=== PATIENT | female | born 1970 | race Caucasian/White ===

== ENCOUNTER 2017-06-05 13:05 | Emergency (ER) | payer BC ==
[2017-06-05 14:09] VITALS: BP 135/87
--- NOTE | 2017-06-05 14:11 | UC ---
Throat Pain/Nasal Ty HPI - HPI Summary HPI Summary: 46 y/o female presents to the urgent care c/o KRISHNA, nasal congestion, dry cough and pain for the past 2 weeks. Pt reports symptoms started with nasal congestion. She now has sinus pain, Rt ear pain and green nasal discharge. She has been taking Afrin nasal drops and OTC meds but symptoms are not improving. Pt denies fever, SOB, chest pain, N/V/D, abdominal pain. - History of Current Complaint Chief Complaint: UCRespiratory Stated Complaint: SINUS COMPLAINT Time Seen by Provider: 06/05/17 14:06 Hx Obtained From: Patient Hx Last Menstrual Period: unknown, ablation ?: No Onset/Duration: Gradual Onset, Lasting Weeks - 2 weeks, Still Present Severity: Moderate Pain Intensity: 6 Pain Scale Used: 0-10 Numeric Cough: Nonproductive Associated Signs & Symptoms: Positive: Sinus Discomfort, Nasal Discharge. Negative: Fever - Epiglottits Risk Factors Epiglottis Risk Factors: Negative - Allergies/Home Medications Allergies/Adverse Reactions: Allergies Allergy/AdvReac Type Severity Reaction Status Date / Time Hydrocodone Allergy Mild Itching Verified 06/05/17 14:09 BEE Allergy Severe ANAPHLYLACTIC Uncoded 06/05/17 14:09 SHOCK ENVIRONMENTAL Allergy Mild SINUS Uncoded 06/05/17 14:09 Home Medications: Home Medications Levothyroxine TAB* [Synthroid 25 MCG TAB*] 25 mcg PO DAILY 06/05/17 [History Confirmed 06/05/17] PMH/Surg Hx/FS Hx/Imm Hx Previously Healthy: Yes Cardiovascular History: Hypertension Other Neurological History: Carpal tunnel syndrome - Surgical History Surgical History: Yes Surgery Procedure, Year, and Place: [facility]us [facility], 2012, [facility], ablation. cholecystectomy. left carpal tunnel 2016 - Family History Known Family History: Positive: Hypertension, Diabetes - Social History Occupation: Employed Full-time Lives: With Family Alcohol Use: Rare Substance Use Type: None Smoking Status (MU): Former Smoker Type: Cigarettes Amount Used/How Often: 3/4 TO 1 PPD Length of Time of Smoking/Using Tobacco: 4 YRS Have You Smoked in the Last Year: No Household Exposure Type: Cigarettes - Immunization History Most Recent Influenza Vaccination: yes Review of Systems Constitutional: Negative Skin: Negative Eyes: Negative ENT: Ear Ache - RT, Nasal Discharge, Sinus Congestion - with green sputum Respiratory: Cough - dry Cardiovascular: Negative Gastrointestinal: Negative Genitourinary: Negative Motor: Negative Neurovascular: Negative Musculoskeletal: Negative Psychological: Negative Is Patient Immunocompromised?: No All Other Systems Reviewed And Are Negative: Yes Physical Exam Triage Information Reviewed: Yes Vital Signs: Initial Vital Signs Temp 98.5 F 06/05/17 14:04 Pulse 64 06/05/17 14:04 Resp 16 06/05/17 14:04 BP 135/87 06/05/17 14:04 Pulse Ox 98 06/05/17 14:04 - Additional Comments Viral signs: reviewed General: Well developed, well-nourished patient with NAD. Head and face: Normocephalic and atraumatic, Positive tenderness over the frontal and maxillary sinuses.. Eyes: PERRLA, EOMI x 2. Normal conjunctiva. No eye discharge. ENT: Ears and TM with normal limits. Nose: with yellowish discharge and erythematous mucosa. Pharynx with erythema, no exudate. Neck: Supple, no JVD, no carotid bruits and no lymphadenopathy. Lungs: clear, no rales, no rhonchi, no wheezes. CVS: RRR, S1 and S2 present no murmurs or gallops appreciated. Abdomen: soft nontender with positive bowel sounds. Extremities: no edema noted. Neuro: WNL. Skin: warm and dry Throat Pain/Nasal Course/Dx - Course Course Of Treatment: 46 y/o female presents to the urgent care c/o KRISHNA, nasal congestion, dry cough and pain for the past 2 weeks. Pt reports symptoms started with nasal congestion. She now has sinus pain, Rt ear pain and green nasal discharge. She has been taking Afrin nasal drops and OTC meds but symptoms are not improving. Pt denies fever, SOB, chest pain, N/V/D, abdominal pain.Hx obtained. Pt with sinusitis on examination. Pt with 2 weeks of symptoms getting worse. Pt Rx Augmentin PO and flonase nasal spray. Discharge instructions explained to Pt. Advised to Return to the clinic or PCP if symptoms do not improve.Pt understood and agreed with plan of care. - Differential Dx/Diagnosis Differential Diagnosis/HQI/PQRI: Influenza, Laryngitis, Mononucleosis, Otitis Media, Pharyngitis, Sinusitis, Tonsillitis, URI Provider Diagnoses: 1- Acute sinusitis Discharge - Discharge Plan Condition: Stable Disposition: HOME Prescriptions: Amoxicillin/Clavulanate TAB* [Augmentin TAB 875*] 875 mg PO BID #20 tab Fluticasone NASAL SPRAY 50MCG* [Flonase NASAL SPRAY 50MCG*] 2 spray BOTH NARES DAILY #1 btl Patient Education Materials: Sinusitis (ED) Referrals: Matteo Mendoza DO [Primary Care Provider] - If Needed Additional Instructions: 1- Please increase fluid intake and rest. take full course of antibiotic to avoid resistance 2-Use Flonase as directed to help drain fluid. Also buy saline drops to clear sinuses 3-Take Sudafed or Claritin PO OTC to alleviates sinus congestion 4-Return to the clinic or PCP if symptoms do not improve for further management and treatment
== END 2017-06-05 14:39 | disposition home or self-care (01) ==
LOC: UCCORT 13:05
DX: J01.90 Acute sinusitis, unspecified (principal); I10 Essential (primary) hypertension; Z88.5 Allergy status to narcotic agent; Z91.030 Bee allergy status; Z87.891 Personal history of nicotine dependence
CPT/HCPCS: 99212; G0463

== ENCOUNTER 2017-09-21 17:38 | Emergency (ER) | payer BC ==
[2017-09-21 18:48] VITALS: BP 129/83
[2017-09-21] MEDS ORDERED: Amoxicillin/Clavulanate TAB* 875 MG PO ONE (19:08)
--- NOTE | 2017-09-21 19:08 | UC ---
Throat Pain/Nasal Ty HPI - HPI Summary HPI Summary: pt states she has had a head cold for several days. the past 3 days she has developed thick yellow nasal discharge, R sinus pain and ear pain. she has tx with nedi pot, mucinex and the last of nasal spray with no relief. - History of Current Complaint Chief Complaint: UCGeneralIllness Stated Complaint: SINUSES Time Seen by Provider: 09/21/17 18:57 Hx Obtained From: Patient Hx Last Menstrual Period: unknown, ablation ?: No Onset/Duration: Gradual Onset Pain Intensity: 0 Associated Signs & Symptoms: Positive: Sinus Discomfort, Nasal Discharge - Epiglottits Risk Factors Epiglottis Risk Factors: Negative - Allergies/Home Medications Allergies/Adverse Reactions: Allergies Allergy/AdvReac Type Severity Reaction Status Date / Time hydrocodone Allergy Itching Verified 09/21/17 18:48 BEE Allergy Severe ANAPHLYLACTIC Uncoded 09/21/17 18:48 SHOCK ENVIRONMENTAL Allergy Mild SINUS Uncoded 09/21/17 18:48 Home Medications: Home Medications Lisinopril TAB* [Prinivil TAB 10 MG*] 20 mg PO DAILY 09/21/17 [History Confirmed 09/21/17] PMH/Surg Hx/FS Hx/Imm Hx - Additional Past Medical History Additional PMH: sinusitis Endocrine History: Thyroid Disease Cardiovascular History: Hypertension - Surgical History Surgical History: Yes Surgery Procedure, Year, and Place: [facility], [facility], [facility]. Sinus Surgery, 2012, [facility], ablation. cholecystectomy. left carpal tunnel 2017. right carpal tunnel 2018 - Family History Known Family History: Positive: Hypertension, Diabetes - Social History Occupation: Employed Full-time Lives: With Family Alcohol Use: None Substance Use Type: None Smoking Status (MU): Former Smoker Type: Cigarettes Amount Used/How Often: 3/4 TO 1 PPD Length of Time of Smoking/Using Tobacco: 4 YRS Have You Smoked in the Last Year: No Household Exposure Type: Cigarettes - Immunization History Most Recent Influenza Vaccination: yes Vaccination Up to Date: Yes Review of Systems Constitutional: Negative Skin: Negative Eyes: Negative ENT: Ear Ache, Nasal Discharge, Sinus Congestion, Sinus Pain/Tenderness Respiratory: Negative Cardiovascular: Negative Gastrointestinal: Negative Genitourinary: Negative Motor: Negative Neurovascular: Negative Musculoskeletal: Negative Neurological: Negative Psychological: Negative Is Patient Immunocompromised?: No All Other Systems Reviewed And Are Negative: Yes Physical Exam Triage Information Reviewed: Yes Appearance: Well-Appearing Vital Signs: Initial Vital Signs Temp 98.2 F 09/21/17 18:42 Pulse 71 09/21/17 18:42 Resp 20 09/21/17 18:42 BP 129/83 09/21/17 18:42 Pulse Ox 99 09/21/17 18:42 Vital Signs Reviewed: Yes Eyes: Positive: Conjunctiva Clear ENT: Positive: Pharynx normal, Nasal congestion, TMs normal, Sinus tenderness - R maxilla Neck: Positive: Supple, Nontender, No Lymphadenopathy Respiratory: Positive: Lungs clear, Normal breath sounds, No respiratory distress Cardiovascular: Positive: RRR, No Murmur Abdomen Description: Positive: Nontender, No Organomegaly, Soft Bowel Sounds: Positive: Present Musculoskeletal: Positive: ROM Intact Neurological: Positive: Alert Psychological: Positive: Age Appropriate Behavior Skin Exam: Normal Throat Pain/Nasal Course/Dx - Differential Dx/Diagnosis Provider Diagnoses: sinusitis Discharge - Discharge Plan Condition: Stable Disposition: HOME Prescriptions: Amoxicillin/Clavulanate TAB* [Augmentin TAB 875*] 875 mg PO BID 10 Days #20 tab Fluticasone NASAL SPRAY 50MCG* [Flonase NASAL SPRAY 50MCG*] 2 spray BOTH NARES DAILY 14 Days #1 btl Patient Education Materials: Sinusitis (ED) Referrals: Matteo Mendoza DO [Primary Care Provider] - 7 Days
== END 2017-09-21 19:17 | disposition home or self-care (01) ==
LOC: UCCORT 17:38
DX: J32.9 Chronic sinusitis, unspecified (principal); Z88.4 Allergy status to anesthetic agent; Z91.030 Bee allergy status; Z88.5 Allergy status to narcotic agent; Z91.048 Other nonmedicinal substance allergy status
CPT/HCPCS: 99212; A9270-GY; G0463

== ENCOUNTER 2018-03-29 17:55 | Emergency (ER) | payer BC ==
[2018-03-29 18:08] VITALS: BP 160/90
--- NOTE | 2018-03-29 18:48 | UC ---
Hand/Wrist HPI - HPI Summary HPI Summary: Pinched finger in the hinge of a table opening it up. opened blood blister but swelling is still spreading and some burning sensation in the tip of the finger. - History Of Current Complaint Chief Complaint: UCSkin Stated Complaint: RT HAND SKIN COMPLAINT Time Seen by Provider: 03/29/18 18:36 Hx Obtained From: Patient Hx Last Menstrual Period: unknown, ablation ?: No Onset/Duration: Sudden Onset, Lasting Hours - 4, Still Present Severity Initially: Moderate Severity Currently: Moderate Pain Intensity: 7 Character Of Pain: Sharp, Burning Aggravating Factor(s): Movement Alleviating Factor(s): Nothing Associated Signs And Symptoms: Positive: Bruising Related History: Dominant Hand Right - Allergies/Home Medications Allergies/Adverse Reactions: Allergies Allergy/AdvReac Type Severity Reaction Status Date / Time hydrocodone Allergy Itching Verified 03/29/18 18:09 BEE Allergy Severe ANAPHLYLACTIC Uncoded 03/29/18 18:09 SHOCK ENVIRONMENTAL Allergy Mild SINUS Uncoded 03/29/18 18:09 Home Medications: Home Medications Calcium Carbonate/Vitamin D3 [Calcium 500 mg Chewable Tablet] 1 each PO DAILY [History Confirmed 03/29/18] Iron 18 mg PO DAILY 03/29/18 [History Confirmed 03/29/18] PMH/Surg Hx/FS Hx/Imm Hx Previously Healthy: Yes - Surgical History Surgical History: Yes Surgery Procedure, Year, and Place: [facility], [facility], [facility]. Sinus Surgery, 2012, [facility], ablation. cholecystectomy. left carpal tunnel 2017. right carpal tunnel 2018 - Family History Known Family History: Positive: Hypertension, Diabetes - Social History Occupation: Employed Full-time Lives: With Family Alcohol Use: None Substance Use Type: None Smoking Status (MU): Former Smoker Type: Cigarettes Amount Used/How Often: 3/4 TO 1 PPD Length of Time of Smoking/Using Tobacco: 4 YRS Have You Smoked in the Last Year: No Household Exposure Type: Cigarettes - Immunization History Most Recent Influenza Vaccination: yes Vaccination Up to Date: Yes Review of Systems Skin: Bruising Is Patient Immunocompromised?: No All Other Systems Reviewed And Are Negative: Yes Physical Exam Triage Information Reviewed: Yes Appearance: Well-Appearing, Pain Distress - mild, Obese Vital Signs: Initial Vital Signs Temp 97 F 03/29/18 18:05 Pulse 59 03/29/18 18:05 Resp 16 09/08/18 18:05 BP 160/90 03/29/18 18:05 Pulse Ox 100 03/29/18 18:05 Vital Signs Reviewed: Yes Eyes: Positive: Conjunctiva Clear Neck exam: Normal Respiratory Exam: Normal Cardiovascular Exam: Normal Musculoskeletal Exam: Normal Psychological Exam: Normal Skin: Positive: Other - blood blister with swelling under on the pad right 3rd finger. Hand/Wrist Course/Dx - Differential Dx/Diagnosis Differential Diagnosis/HQI/PQRI: Abrasion, Contusion, Felon Provider Diagnoses: Blood blister / Contusion right 3rd finger. Discharge - Sign-Out/Discharge Documenting (check all that apply): Patient Departure All imaging exams completed and their final reports reviewed: No Studies - Discharge Plan Condition: Stable Disposition: HOME Patient Education Materials: Hematoma (ED) Referrals: Matteo Mendoza DO [Primary Care Provider] - 2 Days (follow up elevated blood pressure.) Additional Instructions: Do ice every 2 hours for the first 48 hours then heat. Nerve Contusion: A bruised nerve causes the nerve to be irritated and extra sensitive to all sensations. Ice can make it feel worse. Floyd wraps frequently aren't tolerated either. It may take weeks to resolve. - Billing Disposition and Condition Condition: STABLE Disposition: Home
== END 2018-03-29 19:13 | disposition home or self-care (01) ==
LOC: UCCORT 17:55
DX: S60.021A Contusion of right index finger without damage to nail, initial encounter (principal); W23.0XXA Caught, crushed, jammed, or pinched between moving objects, initial encounter; Y92.9 Unspecified place or not applicable
CPT/HCPCS: 99212; G0463

== ENCOUNTER 2018-07-13 12:37 | Emergency (ER) | payer BC ==
[2018-07-13 13:11] VITALS: BP 128/73
--- NOTE | 2018-07-13 13:20 | UC ---
Skin Complaint HPI - HPI Summary HPI Summary: Pt c/o tick bite under right side buttock. Pt noticed the tick this morning, removed tick this morning and believes tick was attached for 3 days or more. Pt is concerned about exposure to lyme. - History of Current Complaint Chief Complaint: UCSkin Time Seen by Provider: 07/13/18 13:04 Stated Complaint: TICK BITE Hx Obtained From: Patient Hx Last Menstrual Period: n/a ?: No Onset/Duration: Lasting Days, Still Present Skin Exposure Onset/Duration: Days Ago Timing: Constant Onset Severity: Mild Pain Intensity: 0 Location: Discrete Alleviating Factor(s): Nothing Associated Signs & Symptoms: Positive: Negative Related History: Insect Bite/Sting - Allergy/Home Medications Allergies/Adverse Reactions: Allergies Allergy/AdvReac Type Severity Reaction Status Date / Time hydrocodone Allergy Itching Verified 07/13/18 13:07 BEE Allergy Severe ANAPHLYLACTIC Uncoded 07/13/18 13:07 SHOCK ENVIRONMENTAL Allergy Mild SINUS Uncoded 07/13/18 13:07 PMH/Surg Hx/FS Hx/Imm Hx Previously Healthy: Yes - Surgical History Surgical History: Yes Surgery Procedure, Year, and Place: [facility], [facility], [facility]. Sinus Surgery, 2012, [facility], ablation. cholecystectomy. left carpal tunnel 2017. right carpal tunnel 2018 - Family History Known Family History: Positive: Hypertension, Diabetes - Social History Occupation: Employed Full-time Lives: With Family Alcohol Use: None Substance Use Type: None Smoking Status (MU): Former Smoker Type: Cigarettes Amount Used/How Often: 3/4 TO 1 PPD Length of Time of Smoking/Using Tobacco: 4 YRS Have You Smoked in the Last Year: No Household Exposure Type: Cigarettes - Immunization History Most Recent Influenza Vaccination: yes Vaccination Up to Date: Yes Review of Systems All Other Systems Reviewed And Are Negative: Yes Constitutional: Positive: Negative Skin: Positive: Other - tick bite Eyes: Positive: Negative ENT: Positive: Negative Respiratory: Positive: Negative Cardiovascular: Positive: Negative Gastrointestinal: Positive: Negative Genitourinary: Positive: Negative Motor: Positive: Negative Neurovascular: Positive: Negative Musculoskeletal: Positive: Negative Neurological: Positive: Negative Psychological: Positive: Negative Is Patient Immunocompromised?: No Physical Exam Triage Information Reviewed: Yes Appearance: Well-Appearing, Obese Vital Signs: Initial Vital Signs Temp 98.2 F 12/23/18 13:05 Pulse 77 07/13/18 13:05 Resp 16 07/13/18 13:05 BP 128/73 07/13/18 13:05 Pulse Ox 98 07/13/18 13:05 Vital Signs Reviewed: Yes Eye Exam: Normal ENT Exam: Normal Neck exam: Normal Respiratory Exam: Normal Respiratory: Positive: No respiratory distress Musculoskeletal Exam: Normal Neurological Exam: Normal Psychological Exam: Normal Skin Exam: Other - tick bite, tick removed. Course/Dx - Differential Diagnoses - Skin Complaint Differential Diagnoses: Tick Born Illness - Diagnoses Provider Diagnosis: Insect bite Discharge - Sign-Out/Discharge Documenting (check all that apply): Patient Departure All imaging exams completed and their final reports reviewed: No Studies - Discharge Plan Condition: Stable Disposition: HOME Prescriptions: DOXYcycline CAP(*) [DOXYcycline 100MG CAP(*)] 100 mg PO Q12H #20 cap Patient Education Materials: Tick Bite (ED) Referrals: Matteo Mendoza DO [Primary Care Provider] - If Needed - Billing Disposition and Condition Condition: STABLE Disposition: Home
== END 2018-07-13 13:26 | disposition home or self-care (01) ==
LOC: UCCORT 12:37
DX: T63.481A Toxic effect of venom of other arthropod, accidental (unintentional), initial encounter (principal); Y92.9 Unspecified place or not applicable; Z88.5 Allergy status to narcotic agent; Z87.891 Personal history of nicotine dependence
CPT/HCPCS: 99212; G0463

== ENCOUNTER 2018-11-27 16:29 | Emergency (ER) | payer BC ==
--- OUTSIDE RECORDS SUMMARY | 2018-11-27 17:02 | XMS REPORT | Continuity of Care Document ---
:1970 External Reference #:[id number] Author Name Valerie Raza Care Team Providers Name Role Phone Reinier Diaz DPAlberto Care Team Information Neurodiagnostic Technician Unavailable Matteo Mendoza DO Primary Care Physician Unavailable Payers Date Identification Numbers Payment Provider Subscriber Policy Number: [id number] [employer]ets Sarahy Shi PayID: [id number] [address] [address] [place] [address] Advance Directives Description No Information Available Problems Active Problems Provider Date Chronic sinusitis Jeancarlos rCenshaw M.D. Onset: 05/08/2012 Tobacco user Jeancarlos Crenshaw M.D. Onset: 05/08/2012 Chronic maxillary sinusitis Jeancarlos Crenshaw M.D. Onset: 05/29/2012 Chronic ethmoidal sinusitis Jeancarlos Crenshaw M.D. Onset: 05/29/2012 Atypical facial pain Jeancarlos Crenshaw M.D. Onset: 08/20/2013 Family History Date Family Member(s) Observation Comments General Diabetes, Insulin Dependent General Heart Disease General Cancer, Lung Father Hypertension Mother Thyroid Disease Mother Son has type 1 diabetes Social History Type Date Description Comments Sex Unknown Marital Status Lives With Occupation pay [employer] Tobacco Use Start: Unknown Never Smoked Cigars Tobacco Use Start: Unknown Never Smoked A Pipe ETOH Use Occasionally consumes alcohol Recreational Drug Use Denies Drug Use Tobacco Use Start: Unknown End: Patient is a former smoker Unknown Smoking Status Reviewed: 11/20/18 Patient is a former smoker Exercise Type/Frequency Does not exercise Allergies, Adverse Reactions, Alerts Active Allergies Reaction Severity Comments Date Hydrocodone Itching 06/06/2016 Bee Sting analphylaxsis 06/06/2016 NSAIDs cant take due to gastric bipass surgery 06/06/2016 Inactive Allergies NKDA 05/30/2011 Medications Active Medications SIG Qnty Indications Ordering Date Provider Plaquenil 1 by mouth every 45tabs M35.9 Jeancarlos Rothman, 09/25/2018 200mg Tablets day for 1 week M.D. then 2 by mouth daily ongoing CBD Oil Unknown Tramadol HCL Matteo Mendoza 50mg Tablets DO Alex Cyclobenzaprine HCL 1 by mouth three Unknown 10mg times a day Tablets Sumatriptan Succinate take 1 at onset Unknown of migraine. november 50mg Tablets repeat within 2 hours if needed. max 2x/week. max daily dose 100mg KP Loratadine 1 by mouth every Unknown 10mg day Tablets [place] Unknown Levothyroxine Sodium Matteo Mendoza DO Alex 25mcg Tablets Epipen 2-Tiburcio use as directed Unknown 0.3mg/0.3ML Solution Auto-Inject Lisinopril 1 by mouth every Unknown 10mg Tablets day Multiple Vitamin 2 by mouth every Unknown Tablets day Saline use as directed 3Liters Fan Antoine, 0.9% Solution for sinus irrigation Probiotic 1 po qd Fan Antoine, Capsules Biotin 1 qd Fan Antoine, 10mg Tablets Vitamin C 1 po qd 60units Unknown 500mg Chewtabs Iron 1 po bid 100tabs Unknown 325(65Fe) mg Tablets Calcium 1200 1 po qd Unknown [id number] Chewtabs Tylenol 2-3 po prn Unknown 325mg Tablets History Medications Prednisone 40 mg po qday for 7 1Course 350.2 Jeancarlos 08/20/2013 - 10mg days, 20 mg for 4 StromingerEnrike 07/03/2016 Tablets days, 10 mg for 4 days, then 5 mg a day for 4 days-finishes this 06/07/16 Percocet 1-2 po q4h prn pain 20tabs 473.0 Jeancarlos 07/24/2012 - 5-325mg Enrike Crenshaw 08/28/2012 Tablets Prednisone 40 mg po qday for 7 100tabs 473.0 Jeancarlos 05/29/2012 - 10mg days, 20 mg for 4 Enrike Crenshaw 08/28/2012 Tablets days, 10 mg for 4 days, 5 mog for 4 days with food Levofloxacin 1 by mouth qday 10tabs 473.9 Jeancarlos 05/08/2012 - 750mg Enrike Crenshaw 08/28/2012 Tablets Diflucan 1 by mouth as 4tabs 473.9 Jeancarlos 05/08/2012 - 200mg needed for yeast Enrike Crenshaw 08/11/2013 Tablets infection Xyzal 1 po qd 30tabs Unknown - 5mg Tablets 06/05/2016 Veramyst 2 sprays each 1Month Unknown - nostril daily 06/05/2016 27.5mcg/[place] Suspension Astepro one puff both sides 1units Fan Antoine MD - 0.15% once per day 06/05/2016 Solution [place] Extract 5 drops with saline Fan Antoine MD - nose rinse and 30 08/11/2013 250mg Drops drops in water bid Chantix 1 po bid Fan Antoine MD - 1mg Tablets 08/11/2013 Magnesium 2 by mouth every Unknown - 400mg day 09/25/2018 Tablets Zinc 1 by mouth every Unknown - Tablets day 09/25/2018 Fluticasone apply to face two Unknown - Propionate times a day for 2 11/20/2018 0.05% weeks on then two Cream weeks off as dir Medications Administered in Office Medication SIG Qnty Indications Ordering Provider Date Depomedrol 40MG Cj Henriquez MD 06/06/2016 Injection Depomedrol 40MG Cj Henriquez MD 06/06/2016 Injection Immunizations Description No Information Available Vital Signs Date Vital Result Comment 11/20/2018 9:56am Height 64 inches 5'4" Weight 278.00 lb Heart Rate 66 /min BP Systolic Sitting 120 mmHg Pain Level 4 O2 % BldC Oximetry 98 % BMI (Body Mass Index) 47.7 kg/m2 09/25/2018 10:59am Height 64 inches 5'4" Weight 281.00 lb Heart Rate 71 /min BP Systolic Sitting 122 mmHg BP Diastolic Sitting 78 mmHg Pain Level 5 O2 % BldC Oximetry 98 % BMI (Body Mass Index) 48.2 kg/m2 07/04/2016 9:45am Height 64 inches 5'4" Weight 240.00 lb BP Systolic Sitting 118 mmHg BP Diastolic Sitting 76 mmHg Pain Level 5 BMI (Body Mass Index) 41.2 kg/m2 06/06/2016 9:27am Heart Rate 75 /min BP Systolic Sitting 138 mmHg BP Diastolic Sitting 80 mmHg Pain Level 5 O2 % BldC Oximetry 96 % 08/11/2013 2:31pm Height 64 inches 5'4" Weight 240.00 lb BMI (Body Mass Index) 41.2 kg/m2 07/24/2012 9:19am Height 64 inches 5'4" Weight 220.00 lb Heart Rate 88 /min BP Systolic Sitting 140 mmHg BP Diastolic Sitting 80 mmHg BMI (Body Mass Index) 37.8 kg/m2 05/08/2012 9:22am Weight 205.00 lb Heart Rate 86 /min BP Systolic Sitting 126 mmHg BP Diastolic Sitting 88 mmHg Results Test Date Facility Test Result H/L Range Note Laboratory test 11/17/2018 [facility] Erythrocyte Sed 9 mm/Hr N 0-[address] [place] [address] [phone] C Reactive Protein 8.93 mg/L High <8.01 CBC Auto Diff 11/17/2018 [facility] White Blood 6.1 10^3/uL N 3.5-10.[address] [place] [address] [phone] Red Blood Count 4.44 10^6/uL N 3.70-4.87 Hemoglobin 13.1 g/dL N 12.0-16.0 Hematocrit 39 % N 33-41 Mean Corpuscular Volume 89 fL N 80-97 Mean Corpuscular Hemoglobin 30 pg N 27-31 Mean Corpuscular HGB Conc 33 g/dL N 31-36 Red Cell Distribution Width 14 % N 10.5-15 Platelet Count 379 10^3/uL N 150-450 Mean Platelet Volume 7.3 fL Low 7.4-10.4 Abs Neutrophils 3.6 10^3/uL N 1.5-7.7 Abs Lymphocytes 2.0 10^3/uL N 1.0-4.8 Abs Monocytes 0.4 10^3/uL N 0-0.8 Abs Eosinophils 0.1 10^3/uL N 0-0.6 Abs Basophils 0.1 10^3/uL N 0-0.2 Abs Nucleated RBC 0 10^3/uL Granulocyte % 58.4 % Lymphocyte % 32.9 % Monocyte % 6.1 % Eosinophil % 1.7 % Basophil % 0.9 % Nucleated Red Blood Cells % 0.1 Comp Metabolic Panel 11/17/2018 [facility] Sodium 140 mmol/L N 135-[address] [place] [address] [phone] Potassium 4.4 mmol/L N 3.5-5.0 Chloride 102 mmol/L N 101-111 Co2 Carbon Dioxide 32 mmol/L N 22-32 Anion Gap 6 mmol/L N 2-11 Glucose 90 mg/dL N 70-100 Blood Urea Nitrogen 13 mg/dL N 6-24 Creatinine 0.75 mg/dL N 0.51-0.95 BUN/Creatinine Ratio 17.3 N 8-20 Calcium 10.1 mg/dL N 8.6-10.3 Total Protein 7.2 g/dL N 6.4-8.9 Albumin 4.7 g/dL N 3.2-5.2 Globulin 2.5 g/dL N 2-4 Albumin/Globulin Ratio 1.9 N 1-3 Total Bilirubin 0.50 mg/dL N 0.2-1.0 Alkaline Phosphatase 69 U/L N 34-104 Alt 20 U/L N 7-52 Ast 16 U/L N 13-39 Egfr Non- 82.1 >60 Egfr 99.4 >60 1 Anca AB Ser If 11/17/2018 [facility] C-Anca Negative Negative [address] [place] [address] [phone] P-Anca Negative Negative 2 Immunoglobulins 11/17/2018 [facility] Immunoglobulin G 864 mg/ dL 767 - 3 Serum Quant [address] [place] [address] [phone] Immunoglobulin M 73 mg/dL 37 - 286 Immunoglobulin A 172 mg/dL 61 - 356 Laboratory test 11/17/2018 [facility] Creatine 53 U/L N 10- [address] Kinase(CK) [place] [address] [phone] CBC With Manual 07/30/2012 [facility] White Blood 8.5 4.8- 10.[address] Count 10^3/uL [place], [place] [id number] [phone] Red Blood Count 4.20 10^6/uL 4.0-5.4 Hemoglobin 12.8 g/dL 12.0-16.0 Hematocrit 38 % 35-47 Mean Corpuscular Volume 91 fL 80-97 Mean Corpuscular Hemoglobin 31 pg 27-31 Mean Corpuscular HGB Conc 34 g/dL 31-36 Red Cell Distribution Width 14 % 10.5-15 Platelet Count 314 10^3/uL 150-450 Mean Platelet Volume 7 um3 Low 7.4-10.4 Abs Neutrophils 6.0 10^3/uL 1.5-7.7 Abs Lymphocytes 1.7 10^3/uL 1.0-4.8 Abs Monocytes 0.5 10^3/uL 0-0.8 Abs Eosinophils 0.2 10^3/uL 0-0.6 Abs Basophils 0.1 10^3/uL 0-0.2 Abs Nucleated RBC 0 10^3/uL Neutrophil % 74 % 38-83 Band % 2 % 0-8 Lymphocytes % 20 % Low 25-47 Monocytes % 3 % 0-13 Basophil % 1 % 0-2 RBC Morphology Normal Normal 1 Because ethnic data is not always readily available, this report includes an eGFR for both -Americans and non- Americans. The National Kidney Disease Education Program (NKDEP) does not endorse the use of the MDRD equation for patients that are not between the ages of 18 and 70, are , have extremes of body size, muscle mass, or nutritional status, or are non- or non-. According to the National Kidney Foundation, irrespective of diagnosis, the stage of the disease is based on the level of kidney function: Stage Description GFR(mL/min/1.73 m(2)) 1 Kidney damage with normal or decreased GFR 90 2 Kidney damage with mild decrease in GFR 60-89 3 Moderate decrease in GFR 30-59 4 Severe decrease in GFR 15-29 5 Kidney failure <15 (or dialysis) 2 Negative for cANCA and pANCA patterns by immunofluorescence. ADDITIONAL INFORMATION This test was developed and its performance characteristics determined by [facility] in a manner consistent with CLIA requirements. This test has not been cleared or approved by the U.S. Food and Drug Administration. Test Performed by: [facility] - [address] [address] Test Performed by: [facility] - [address] [address] Procedures Date Code Description Status 06/06/2016 Inject Tendon Sheath Or Ligament Aponeurosis Eg Plantar Completed Fascia 06/06/2016 Inject Tendon Sheath Or Ligament Aponeurosis Eg Plantar Completed Fascia 08/20/2013 13815 Nasal Endoscopy, Diagnostic Completed 08/11/2013 73755 Nasal Endoscopy, Diagnostic Completed 08/28/2012 13823 Nasal Endoscopy, Diagnostic Completed 08/14/2012 30417 Nasal Endoscopy W/Debridement Completed 08/08/2012 24937 N/Endoscopy/Max Antrostomy Completed 08/08/2012 81134 Nasal Endoscopy/Ethmoidectomy/Total Completed 08/08/2012 65691 N/Endoscopy/W/Ethmoidectomy,Partial Completed Encounters Type Date Location Provider Dx Diagnosis Office Visit 09/25/2018 Rheumatology Jeancarlos Rothman, M35.9 Systemic 11:00a [facility] involvement of connective tissue, unspecified M79.7 Fibromyalgia Z79.899 Other long-term (current) drug therapy J32.8 Other chronic sinusitis Office Visit 07/08/2018 1:20p [facility]ato Cabello, L21.8 Other seborrheic Khris HEALY dermatitis B35.3 Tinea pedis L85.3 Xerosis cutis Office Visit 07/04/2016 Orthopedic Cj Dominguez M65.871 Other synovitis and 9:45a [facility] Henriquez MD tenosynovitis, right AT [place] [facility] Office Visit 06/06/2016 Orthopedic Cj Dominguez M65.871 Other synovitis and 9:30a [facility] Henriquez MD tenosynovitis, right AT [place] [facility] Office Visit 12/04/2012 [facility] 473.0 Sinusitis Chronic 9:00a C[facility] AT [facility], Maxillary [place] M.DJoão 305.1 Tobacco Use Disorder Office Visit 07/24/2012 9:15a [facility] Crenshaw, 473.0 Sinusitis C.M.A. AT M.D. Chronic [place] Maxillary 473.2 Sinusitis Chronic Ethmoidal Office Visit 05/29/2012 9:30a [facility], 473.0 Sinusitis C.M.A. AT M.D. Chronic [place] Maxillary 473.2 Sinusitis Chronic Ethmoidal Office Visit 05/08/2012 9:15a [facility], 473.9 Sinusitis C.M.A. AT M.D. Chronic Unspec [place] 305.1 Tobacco Use Disorder Office Visit 05/30/2011 2:30p [facility] [employer] Quang Echavarria, 726.2 [facility] Enrike Affections Other Not Elsewhere Class Plan of Treatment Future Appointment(s):04/22/2019 8:20 am - Jeancarlos Rothman M.D. at [facility]11/20/2018 - Jeancarlos Rothman M.D.M35.9 Systemic involvement of connective tissue, unspecifiedComments:Please follow up with your FILM SOUND ENGINEER specialist for muuanjeD55.899 Other mushroom growth media mixer (current) drug wessstmN05.36 Other intervertebral disc degeneration, lumbar lazgzrC23.82 Elevated C-reactive protein (CRP)Follow up:Follow up in 4 to 5 months or sooner if needed
[2018-11-27 17:06] VITALS: BP 141/90
--- NOTE | 2018-11-27 17:07 | UC ---
Skin Complaint HPI - HPI Summary HPI Summary: Was mulching all wknd and yesterday noticed she thought was a tick but she was not certain. She started to dig at area to get it out but never noticed the body of a tick. Feels she has felt itching and area looks like the 'head ' is still in there. it is located at L inner ankle inside of a tattoo she has. - History of Current Complaint Chief Complaint: UCSkin Time Seen by Provider: 11/27/18 17:01 Stated Complaint: SKIN COMPLAINT-LEFT ANKLE Hx Obtained From: Patient Hx Last Menstrual Period: ablation Pain Intensity: 0 Pain Scale Used: 0-10 Numeric - Allergy/Home Medications Allergies/Adverse Reactions: Allergies Allergy/AdvReac Type Severity Reaction Status Date / Time hydrocodone Allergy Itching Verified 11/27/18 17:02 BEE Allergy Severe ANAPHLYLACTIC Uncoded 11/27/18 17:02 SHOCK ENVIRONMENTAL Allergy Mild SINUS Uncoded 11/27/18 17:02 Home Medications: Home Medications Hydroxychloroquine TAB* [Plaquenil TAB*] 200 mg PO DAILY 11/27/18 [History Confirmed 11/27/18] PMH/Surg Hx/FS Hx/Imm Hx Previously Healthy: Yes Endocrine History: Thyroid Disease - Surgical History Surgical History: Yes Surgery Procedure, Year, and Place: Gastric Bypass, 2008, ; Sinus Surgery, 2012, [facility] [place], ablation; cholecystectomy. left carpal tunnel 2016; right carpal tunnel 2017 - Family History Known Family History: Positive: Hypertension, Diabetes - Social History Alcohol Use: None Substance Use Type: None Smoking Status (MU): Former Smoker Type: Cigarettes Amount Used/How Often: 3/4 TO 1 PPD Length of Time of Smoking/Using Tobacco: 4 YRS Have You Smoked in the Last Year: No Household Exposure Type: Cigarettes - Immunization History Most Recent Influenza Vaccination: yes Vaccination Up to Date: Yes Review of Systems All Other Systems Reviewed And Are Negative: Yes Constitutional: Negative: Fever, Chills, Fatigue Skin: Positive: Other - a very small area of itching L inner ankle. Musculoskeletal: Negative: Arthralgia, Myalgia Physical Exam Triage Information Reviewed: Yes Appearance: Well-Appearing Vital Signs: Initial Vital Signs Temp 98.7 F 11/27/18 17:03 Pulse 72 11/27/18 17:03 Resp 18 11/27/18 17:03 BP 141/90 11/27/18 17:03 Pulse Ox 97 11/27/18 17:03 Vital Signs Reviewed: Yes Musculoskeletal: Positive: No Edema - at L ankle Skin: Positive: Significant Lesion(s) - tattoo at L inner ankle., Other - pinpoint excoriated area w/ scab, area is flat nontender and no bull's eye rash noted. Course/Dx - Course Course Of Treatment: L inner ankle has very small wound but unable to tell if this is an actual tick body part left behind as pt. did not ever notice a tick body. My concern is if this is an atypical mole presentation that is starting to open up. have recommended derm f/u for possible biopsy or garrison eval. she insisted on doxycycline prophylaxis for possible lyme exposure and we had long discussion about this ; pros/cons/risks/benefits. she has accepted the risks and i rx'd antibx. vitals good. - Differential Diagnoses - Skin Complaint Differential Diagnoses: Cellulitis, Tick Born Illness, Tinea, Other - Diagnoses Provider Diagnosis: Excoriation Discharge - Sign-Out/Discharge Documenting (check all that apply): Patient Departure All imaging exams completed and their final reports reviewed: No Studies - Discharge Plan Condition: Good Disposition: HOME Prescriptions: DOXYcycline CAP(*) [DOXYcycline 100MG CAP(*)] 100 mg PO DAILY 1 Days #2 cap Patient Education Materials: Atypical Mole (ED) Referrals: Taot Cabello MD [Medical Doctor] - Additional Instructions: Although I don't think this was a tick I can offer the antibiotic prophylaxis which I sent to pharmacy. It may be an atypical mole for which I'd like you to get evaluated for at the manager of internal audit. - Billing Disposition and Condition Condition: GOOD Disposition: Home
== END 2018-11-27 17:22 | disposition home or self-care (01) ==
LOC: UCCORT 16:29
DX: S90.512A Abrasion, left ankle, initial encounter (principal); W57.XXXA Bitten or stung by nonvenomous insect and other nonvenomous arthropods, initial encounter; Y93.H2 Activity, gardening and landscaping; Y92.017 Garden or yard in single-family (private) house as the place of occurrence of the external cause; J30.89 Other allergic rhinitis; E07.9 Disorder of thyroid, unspecified; Z87.891 Personal history of nicotine dependence; Z88.5 Allergy status to narcotic agent; Z91.030 Bee allergy status
CPT/HCPCS: 99212; G0463

== ENCOUNTER 2019-04-01 08:03 | Emergency (ER) | payer BC ==
--- NOTE | 2019-04-01 08:19 | UC ---
Ear Complaint HPI - HPI Summary HPI Summary: 48yo woman with undifferentiated connective tissue disease, takes hydroxychloroquine, with new tragus piercing on 03/27/19. She noticed increased swelling around the right ear with mild TTP for the past day. She has increased sinus drainage, but no fever, chills or cough. Mild decrease in hearing. - History of Current Complaint Stated Complaint: RIGHT EAR Time Seen by Provider: 04/01/19 08:16 Hx Obtained From: Patient Hx Last Menstrual Period: HX ABLATION Onset/Duration: Gradual Onset, Lasting Days - 1 Severity Initially: Mild Severity Currently: Mild Aggravating Factors: FB Alleviating Factors: Nothing Associated Signs/Symptoms: Positive: Trauma to Ear - elective piercing, Swelling @ - tragus - Allergies/Home Medications Allergies/Adverse Reactions: Allergies Allergy/AdvReac Type Severity Reaction Status Date / Time hydrocodone Allergy Itching Verified 04/01/19 08:21 BEE Allergy Severe ANAPHLYLACTIC Uncoded 04/01/19 08:21 SHOCK ENVIRONMENTAL Allergy Mild SINUS Uncoded 04/01/19 08:21 PMH/Surg Hx/FS Hx/Imm Hx - Additional Past Medical History Additional PMH: Undifferentiated mixed connective tissue disease. Previously Healthy: Yes Endocrine History: Hypothyroidism Cardiovascular History: Hypertension - Surgical History Surgical History: Yes Surgery Procedure, Year, and Place: [facility]; [facility], 2012, [facility] [place], UTERINE ablation; cholecystectomy. left carpal tunnel 2016 ; right carpal tunnel 2018 - Family History Known Family History: Positive: Hypertension, Diabetes - Social History Occupation: Employed Full-time Lives: With Family Alcohol Use: None Substance Use Type: None Smoking Status (MU): Former Smoker Type: Cigarettes Amount Used/How Often: 3/4 TO 1 PPD Length of Time of Smoking/Using Tobacco: 4 YRS Have You Smoked in the Last Year: No Household Exposure Type: Cigarettes - Immunization History Most Recent Influenza Vaccination: yes Vaccination Up to Date: Yes Review of Systems All Other Systems Reviewed And Are Negative: Yes Constitutional: Positive: Negative Skin: Positive: Other - tenderness and swelling. ENT: Positive: Ear Ache, Nasal Discharge, Sinus Congestion Respiratory: Negative: Shortness Of Breath, Cough Cardiovascular: Negative: Palpitations, Chest Pain Motor: Positive: Other - has ortho follow up today re MRI--left knee effusion and degenerative arthritis. Recent twisting injury. Neurovascular: Positive: Negative Neurological: Positive: Negative Is Patient Immunocompromised?: No Physical Exam Triage Information Reviewed: Yes Appearance: Well-Appearing, Pain Distress - mild, Obese Eyes: Positive: Conjunctiva Clear ENT: Positive: Pharynx normal, TMs normal, Other - tragus of right ear about 2.5 times size of left, with tenderness and erythema. Piercing removed easily after stabilizing with hemostat. Scant amount of serosanguinous discharge from piercing. Neck: Positive: Supple, Nontender, Enlarged Nodes @ - right pre-auricular node enlarged and tender, with mild swelling of the cheek in front of the ear. Respiratory: Positive: Lungs clear, Normal breath sounds Cardiovascular: Positive: RRR, No Murmur Psychological Exam: Normal Skin Exam: Normal Ear Complaint Course/Dx - Course Course Of Treatment: cephalexin for treatment of early cellulitis; piercing removed; continue topical cleansing with saline or alcohol wipes. - Differential Dx/Diagnosis Differential Diagnosis/HQI/PQRI: Foreign Body, Otitis Externa, Otitis Media, Other - cellulitis right tragus Provider Diagnosis: Cellulitis of tragus of right ear Discharge ED - Sign-Out/Discharge Documenting (check all that apply): Patient Departure All imaging exams completed and their final reports reviewed: No Studies - Discharge Plan Condition: Stable Disposition: HOME Prescriptions: cephALEXin [Keflex] 500 mg PO TID #15 capsule Patient Education Materials: Cellulitis (ED) Referrals: Matteo Mendoza DO [Primary Care Provider] - Additional Instructions: I anticipate quick improvement with use of oral antbiotic following the removal of the piercing. Continue local clenasing. Side effects of cephlexin include mild gastric upset, but usually it is well tolerated. Follow up if you develop a fever or increased. or do not have significant decrease in swelling and discomfort after 6 doses of antibiotic treatment. - Billing Disposition and Condition Condition: STABLE Disposition: Home
[2019-04-01 08:21] VITALS: BP 139/80
== END 2019-04-01 08:46 | disposition home or self-care (01) ==
LOC: UCCORT 08:03
DX: H60.11 Cellulitis of right external ear (principal); M35.9 Systemic involvement of connective tissue, unspecified; I10 Essential (primary) hypertension; Z88.5 Allergy status to narcotic agent; Z91.030 Bee allergy status; Z87.891 Personal history of nicotine dependence
CPT/HCPCS: 99212; G0463

== ENCOUNTER 2019-06-29 14:39 | Emergency (ER) | payer BC ==
[2019-06-29 15:05] VITALS: BP 144/82
--- NOTE | 2019-06-29 15:16 | UC ---
Throat Pain/Nasal Ty HPI - HPI Summary HPI Summary: 48 year old female with no PMH, h/o smoking, stopped 4 years ago presents with b /l sinus pressure x 10 days, no improvement. no fever, + chills. no cough, no wheezing. mild throat irritation, + b/l ear fullness. Patient states symptoms happen yearly. - History of Current Complaint Chief Complaint: UCRespiratory Stated Complaint: SINUS CONCERN Time Seen by Provider: 06/29/19 15:09 Hx Obtained From: Patient Hx Last Menstrual Period: HX ABLATION ?: No Onset/Duration: Sudden Onset, Lasting Days - 10 Severity: Severe Pain Intensity: 9 Pain Scale Used: 0-10 Numeric Cough: None Associated Signs & Symptoms: Positive: Sinus Discomfort, Nasal Discharge. Negative: Fever, Vomiting, Rash Related History: Smoking - Allergies/Home Medications Allergies/Adverse Reactions: Allergies Allergy/AdvReac Type Severity Reaction Status Date / Time bee venom protein (honey bee) Allergy Anaphylatic Verified 06/29/19 15:01 Shock codeine Allergy Unknown Verified 06/29/19 15:01 Reaction Details hydrocodone Allergy Itching Verified 06/29/19 15:01 ENVIRONMENTAL Allergy Mild SINUS Uncoded 06/29/19 15:01 PMH/Surg Hx/FS Hx/Imm Hx Previously Healthy: Yes - Surgical History Surgical History: Yes Surgery Procedure, Year, and Place: [facility]; [facility]us Surgery, 2012, [facility], UTERINE ablation; cholecystectomy. left carpal tunnel 2016 ; right carpal tunnel 2018 - Family History Known Family History: Positive: Hypertension, Diabetes, Non-Contributory - Social History Occupation: Employed Full-time Alcohol Use: None Substance Use Type: None Smoking Status (MU): Former Smoker Type: Cigarettes Amount Used/How Often: 3/4 TO 1 PPD Length of Time of Smoking/Using Tobacco: 4 YRS Have You Smoked in the Last Year: No When Did the Patient Quit Smoking/Using Tobacco: 2016 Household Exposure Type: Cigarettes - Immunization History Most Recent Influenza Vaccination: yes Vaccination Up to Date: Yes Review of Systems All Other Systems Reviewed And Are Negative: Yes Constitutional: Positive: Chills, Fatigue. Negative: Fever ENT: Positive: Nasal Discharge, Sinus Congestion, Sinus Pain/Tenderness. Negative: Sore Throat, Ear Ache Respiratory: Negative: Cough Cardiovascular: Positive: Negative Is Patient Immunocompromised?: No Physical Exam Triage Information Reviewed: Yes Appearance: No Pain Distress, Well-Nourished, Ill-Appearing - minimal Vital Signs: Initial Vital Signs Temp 97.2 F 06/29/19 15:00 Pulse 64 06/29/19 15:00 Resp 16 06/29/19 15:00 BP 144/82 06/29/19 15:00 Pulse Ox 99 06/29/19 15:00 Vital Signs Reviewed: Yes Eyes: Positive: Conjunctiva Clear ENT: Positive: Pharynx normal, Nasal congestion, Nasal drainage, TMs normal. Negative: Pharyngeal erythema, TM bulging, TM dull, TM red, Tonsillar swelling, Tonsillar exudate, Sinus tenderness - b/l frontal ,submand, Uvula midline Neck: Positive: Supple, Nontender, No Lymphadenopathy. Negative: Nuchal Rigidity, Enlarged Nodes @ Respiratory: Positive: Chest non-tender, Lungs clear, Normal breath sounds, No respiratory distress. Negative: Crackles, Rhonchi, Stridor, Wheezing Cardiovascular: Positive: RRR, No Murmur Neurological Exam: Normal Throat Pain/Nasal Course/Dx - Course Course Of Treatment: sinusitis: - Follow up with primary physician within 2-3 days if no improvement - Increased fluid intake - Over the counter medications as needed for symptoms. - Differential Dx/Diagnosis Differential Diagnosis/HQI/PQRI: Sinusitis, Tonsillitis, URI Provider Diagnosis: Sinusitis Discharge ED - Sign-Out/Discharge Documenting (check all that apply): Patient Departure All imaging exams completed and their final reports reviewed: No Studies - Discharge Plan Condition: Good Disposition: HOME Prescriptions: Amoxicillin/Clavulanate TAB* [Augmentin TAB 875*] 875 mg PO BID #20 tab Patient Education Materials: Sinusitis (ED) Referrals: Matteo Mendoza DO [Primary Care Provider] - Additional Instructions: - Follow up with primary physician within 2-3 days if no improvement - Increased fluid intake - Over the counter medications as needed for symptoms. - Billing Disposition and Condition Condition: GOOD Disposition: Home
== END 2019-06-29 15:26 | disposition home or self-care (01) ==
LOC: UCCORT 14:39
DX: J32.9 Chronic sinusitis, unspecified (principal); Z91.030 Bee allergy status; Z88.5 Allergy status to narcotic agent; Z91.09 Other allergy status, other than to drugs and biological substances; Z87.891 Personal history of nicotine dependence
CPT/HCPCS: 99212; G0463